=== PATIENT | female | born 1950 | race Two or more races ===

== ENCOUNTER 2021-05-24 17:02 | Inpatient (IN) | payer OTHER ==
[~2021-05-24] VITALS: Ht 160 cm; Wt 68.0 kg
[2021-05-24] MEDS ORDERED: ANASTROZOLE1 MG PO (18:05)
[2021-05-24] MEDS ORDERED: COZAAR50 MG PO (18:05)
[2021-05-26] MEDS ORDERED: PANTOPRAZOLE SO40 MG PO (08:05)
[2021-05-26] MEDS ORDERED: ELIQUIS5 MG PO (08:05)
[2021-05-26] MEDS ORDERED: LOPRESSOR25 MG PO (08:05)
== END 2021-05-26 09:33 | disposition home or self-care (01) | DRG 310 ==
LOC: ER 17:02 → ICU-2 22:51
PROVIDERS: ADMIT Internal Medicine; ATTEND Internal Medicine
PROC: 4A12X4Z Monitoring of Cardiac Electrical Activity, External Approach (ICD-10-PCS; principal; 2021-05-24)
PROC: B246ZZZ Ultrasonography of Right and Left Heart (ICD-10-PCS; 2021-05-24)
PROC: 3E0F7SF Introduction of Other Gas into Respiratory Tract, Via Natural or Artificial Opening (ICD-10-PCS; 2021-05-24)
DX: I48.91 Unspecified atrial fibrillation (principal); I11.9 Hypertensive heart disease without heart failure; C50.912 Malignant neoplasm of unspecified site of left female breast; Z20.822 Contact with and (suspected) exposure to COVID-19

== ENCOUNTER 2021-10-23 15:38 | Emergency (ER) | payer OTHER ==
[~2021-10-23] VITALS: Ht 152.4 cm; Wt 67.1 kg
[~2021-10-23 15:38] MED LIST: ANASTROZOLE1 MG PO; COZAAR50 MG PO; ELIQUIS5 MG PO; LOPRESSOR25 MG PO; PANTOPRAZOLE SO40 MG PO
== END 2021-10-23 16:15 | disposition home or self-care (01) ==
LOC: ER 15:38
DX: S51.811A Laceration without foreign body of right forearm, initial encounter (principal); W45.8XXA Other foreign body or object entering through skin, initial encounter; Y93.9 Activity, unspecified; Y92.89 Other specified places as the place of occurrence of the external cause; Y99.9 Unspecified external cause status